=== PATIENT | female | born 1990 | race Caucasian/White ===

== ENCOUNTER 2020-10-30 09:23 | Emergency (ER) | payer SELFPAY ==
[~2020-10-30] VITALS: Ht 162.6 cm; Wt 63.6 kg
[~2020-10-30 09:23] MED LIST: ADVAIR IH; ALBUTEROL0.09 MG/A4 IH; ATIVAN 1MG T1 MG/TAB PO; CIPRO 500MG TA500 MG PO; COLACE 100100 MG/CAP PO; MOTRIN 600600 MG/TAB PO; MOTRIN 800800 MG/TAB PO; NEXPLANON68 MG ID; PERCOCET 325 MG1 TA2 PO; PRENATAL VITAMI1 TAB PO; PRENATAL1 TA3 PO; RT ADVAIR 128 DISKUS IH; TYLENOL 325MG325 MG PO; TYLENOL W/COD1 UDTAB PO; VENTOLIN0.09 MG IH
[2020-10-30 09:33] VITALS: BP 105/72; PULSE 93; TEMP 97.6
[2020-10-30] MEDS ORDERED: LIDODERM 5% PATC1 EA TP (10:00)
[2020-10-30] MEDS ORDERED: FLEXERIL5 MG PO (10:00)
== END 2020-10-30 10:23 | disposition home or self-care (01) ==
LOC: COL.ER 09:23
DX: M54.5 Low back pain (principal); F17.210 Nicotine dependence, cigarettes, uncomplicated; Z88.1 Allergy status to other antibiotic agents
CPT/HCPCS: J1885